=== PATIENT | female | born 1975 ===

== ENCOUNTER 2020-01-11 13:15 | Inpatient (IN) | payer OTHER ==
[~2020-01-11] VITALS: Ht 165.1 cm; Wt 81.6 kg
[2020-01-23] MEDS ORDERED: INTEGRA F CAPS1 EACH PO (12:56)
[2020-01-23] MEDS ORDERED: HYOSCYAMINE0.125 M1 SL (12:56)
[2020-01-23] MEDS ORDERED: ULTRACET PO (12:56)
[2020-01-23] MEDS ORDERED: INTESTINEX680 M1 PO (12:57)
== END 2020-01-23 13:53 | disposition home or self-care (01) | DRG 330 ==
LOC: ADM 13:15 → SURH 01-18 07:00 → O/R 01-18 09:11 → SURG 01-18 09:11 → SURH 01-18 13:15 → EDSTATUS 01-18 13:15 → ADM 01-18 13:15 → SURG 01-18 17:26
PROVIDERS: ADMIT Colon & Rectal Surgery; ATTEND Colon & Rectal Surgery
PROC: 07BB4ZX Excision of Mesenteric Lymphatic, Percutaneous Endoscopic Approach, Diagnostic (ICD-10-PCS; 2020-01-18)
PROC: 0DJD8ZZ Inspection of Lower Intestinal Tract, Via Natural or Artificial Opening Endoscopic (ICD-10-PCS; 2020-01-18)
PROC: 0DTG4ZZ Resection of Left Large Intestine, Percutaneous Endoscopic Approach (ICD-10-PCS; principal; 2020-01-18 07:00)
PROC: 3E0436Z Introduction of Nutritional Substance into Central Vein, Percutaneous Approach (ICD-10-PCS; 2020-01-21)
PROC: 05HY33Z Insertion of Infusion Device into Upper Vein, Percutaneous Approach (ICD-10-PCS; 2020-01-21)
DX: C18.6 Malignant neoplasm of descending colon (principal); K56.0 Paralytic ileus; D64.9 Anemia, unspecified; R59.0 Localized enlarged lymph nodes; Z03.818 Encounter for observation for suspected exposure to other biological agents ruled out

== ENCOUNTER 2020-09-15 09:40 | Day surgery (SDC) | payer OTHER ==
[~2020-09-15 09:40] MED LIST: HYOSCYAMINE0.125 M1 SL; INTEGRA F CAPS1 EACH PO; INTESTINEX680 M1 PO; ULTRACET PO
== END 2020-09-15 16:30 | disposition home or self-care (01) ==
LOC: AMB-ENDOS 09:40
PROVIDERS: ATTEND Colon & Rectal Surgery
DX: K62.89 Other specified diseases of anus and rectum (principal); K64.2 Third degree hemorrhoids; Z20.828 Contact with and (suspected) exposure to other viral communicable diseases